=== PATIENT | male | born 1970 | race Caucasian/White ===

== ENCOUNTER 2017-07-17 17:57 | Emergency (ER) | payer SELFPAY ==
[2017-07-17] MEDS ORDERED: Pantoprazole 40 MG Vial IVPUSH ONE (19:04)
[2017-07-17] MEDS ORDERED: Ondansetron 4 MG/2 ML SDV IVPUSH ONE (19:04)
--- NOTE | 2017-07-17 19:07 | EDM.PDOC ---
ED HPI GENERAL MEDICAL PROBLEM - General Chief Complaint: Gastrointestinal Problem Stated Complaint: VOMITING/STOMACH PAIN Time Seen by Provider: 07/17/17 19:05 Source of Information: Reports: Patient - History of Present Illness INITIAL COMMENTS - FREE TEXT/NARRATIVE: HISTORY AND PHYSICAL: History of present illness: [Patient presents with vomiting 2 and some abdominal discomfort no fever chills sweats no chest pain shortness breath headache dizziness palpitation no bowel or urine symptoms He rates discomfort/pain 2 out of 10 without focus and nonradiating ] He attributes vomiting treating ground beef this morning he states was well cooked Review of systems: As per history of present illness and below otherwise all systems reviewed and negative. Past medical history: As per history of present illness and as reviewed below otherwise noncontributory. Surgical history: As per history of present illness and as reviewed below otherwise noncontributory. Social history: No reported history of drug or alcohol abuse. Family history: As per history of present illness and as reviewed below otherwise noncontributory. Physical exam: HEENT: Atraumatic, normocephalic, pupils reactive, negative for conjunctival pallor or scleral icterus, mucous membranes moist, throat clear, neck supple, nontender, trachea midline. Lungs: Clear to auscultation, breath sounds equal bilaterally, chest nontender. Heart: S1S2, regular, negative for clicks, rubs, or JVD. Abdomen: Soft, nondistended, mild diffuse tenderness on deep palpation nonfocal. Negative for masses or hepatosplenomegaly. Negative for costovertebral tenderness. Pelvis: Stable nontender. Genitourinary: Deferred. Rectal: Deferred. Extremities: Atraumatic, negative for cords or calf pain. Neurovascular unremarkable. Neuro: Awake, alert, oriented. Cranial nerves II through XII unremarkable. Cerebellum unremarkable. Motor and sensory unremarkable throughout. Exam nonfocal. Diagnostics: [CBC CMP UA lipase troponin ]Flat and upright Therapeutics: [1 L normal saline bolus Zofran 8 mg IV Proton X 80 mg IV ] Impression: [Gastroenteritis] Vomiting Definitive disposition and diagnosis as appropriate pending reevaluation and review of above. Abdomen Pain Score (Numeric/FACES): 3 - Related Data Allergies Allergy/AdvReac Type Severity Reaction Status Date / Time No Known Allergies Allergy Verified 07/17/17 19:03 Home Meds: Home Meds . [No Known Home Meds] 07/17/17 [History] ED ROS GENERAL - Review of Systems Review Of Systems: ROS reveals no pertinent complaints other than HPI. ED EXAM, GENERAL - Physical Exam Exam: See Below Course - Vital Signs Last Recorded V/S: Last Vital Signs Temp 98.3 F 07/17/17 19:03 Pulse 62 07/17/17 19:03 Resp 18 07/17/17 19:03 BP 156/93 H 07/17/17 19:03 Pulse Ox 98 07/17/17 19:03 - Orders/Labs/Meds Orders: Active Orders 24 hr Category Date Time Status Abdomen 2V AP Flat Upright [CR] Stat Exams 07/17/17 19:54 Taken Sodium Chloride 0.9% [Normal Saline] 1,000 ml Med 07/17/17 19:15 Active IV STAT Medication Orders Sodium Chloride (Normal Saline) 1,000 mls @ 125 mls/hr IV STAT GAYE Last Admin: 07/17/17 19:20 Dose: 125 mls/hr Labs: Laboratory Tests 07/17/17 07/17/17 Range/Units 19:09 19:09 WBC 11.07 H (4.0-11.0) K/uL RBC 6.15 H (4.50-5.90) M/uL Hgb 17.0 (13.0-17.0) g/dL Hct 50.1 H (38.0-50.0) % MCV 81.5 (80.0-98.0) fL MCH 27.6 (27.0-32.0) pg MCHC 33.9 (31.0-37.0) g/dL RDW Std Deviation 40.9 (28.0-62.0) fl RDW Coeff of Karyn 14 (11.0-15.0) % Plt Count 265 (150-400) K/uL MPV 9.80 (7.40-12.00) fL Neut % (Auto) 66.9 (48.0-80.0) % Lymph % (Auto) 20.8 (16.0-40.0) % Martin % (Auto) 10.1 (0.0-15.0) % Eos % (Auto) 1.8 (0.0-7.0) % Baso % (Auto) 0.4 (0.0-1.5) % Neut # (Auto) 7.4 H (1.4-5.7) K/uL Lymph # (Auto) 2.3 (0.6-2.4) K/uL Martin # (Auto) 1.1 H (0.0-0.8) K/uL Eos # (Auto) 0.2 (0.0-0.7) K/uL Baso # (Auto) 0.0 (0.0-0.1) K/uL Nucleated RBC % 0.0 /100WBC Nucleated RBCs # 0 K/uL Sodium 139 (136-148) mmol/L Potassium 3.8 (3.5-5.1) mmol/L Chloride 104 (98-107) mmol/L Carbon Dioxide 30.4 (21.0-32.0) mmol/L BUN 8 (7.0-18.0) mg/dL Creatinine 1.0 (0.8-1.3) mg/dL Est Cr Clr Drug Dosing 93.28 mL/min Estimated GFR (MDRD) > 60.0 ml/min Glucose 109 H (74-106) mg/dL Calcium 9.2 (8.5-10.1) mg/dL Total Bilirubin 0.6 (0.2-1.0) mg/dL AST 56 H (15-37) U/L ALT 97 H (14-63) U/L Alkaline Phosphatase 91 (46-116) U/L Troponin I < 0.050 (0.000-0.056) ng/mL Total Protein 8.5 H (6.4-8.2) g/dL Albumin 4.0 (3.4-5.0) g/dL Globulin 4.5 H (2.0-3.5) g/dL Albumin/Globulin Ratio 0.9 L (1.3-2.8) Lipase 88 (73-393) U/L Meds: Medications Generic Name Dose Route Start Last Admin Trade Name Freq PRN Reason Stop Dose Admin Sodium Chloride 1,000 mls @ 125 mls/hr 07/17/17 19:15 07/17/17 19:20 Normal Saline IV 125 mls/hr STAT GAYE Administration Discontinued Medications Generic Name Dose Route Start Last Admin Trade Name Freq PRN Reason Stop Dose Admin Ondansetron HCl 8 mg 07/17/17 19:04 07/17/17 19:20 Zofran IVPUSH 07/17/17 19:05 8 mg ONETIME ONE Administration Pantoprazole Sodium 80 mg 07/17/17 19:04 07/17/17 19:21 Protonix Iv IVPUSH 07/17/17 19:05 80 mg .BOLUS ONE Administration Departure - Departure Time of Disposition: 21:02 Disposition: Home, Self-Care 01 Condition: Good Clinical Impression: Gastroenteritis - Discharge Information Referrals: PCP,None [Primary Care Provider] - Forms: ED Department Discharge Additional Instructions: Medication as prescribed Gas-X may benefit 4 times daily available [id number] Rest fluids nutrition Recommend clear liquid diet over the next 12-24 hours water and Gatorade Follow-up with primary care in 2 weeks sooner as needed Return if symptoms persist or worsen or new concerning symptoms develop [facility] - Primary Care [address] [place] [address] The following information is given to patients seen in the emergency department who are being discharged to home. This information is to outline your options for follow-up care. We provide all patients seen in our emergency department with a follow-up referral. The need for follow-up, as well as the timing and circumstances, are variable depending upon the specifics of your emergency department visit. If you don't have a primary care physician on staff, we will provide you with a referral. We always advise you to contact your personal physician following an emergency department visit to inform them of the circumstance of the visit and for follow-up with them and/or the need for any referrals to a consulting specialist. The emergency department will also refer you to a specialist when appropriate. This referral assures that you have the opportunity for follow-up care with a specialist. All of these measure are taken in an effort to provide you with optimal care, which includes your follow-up. Under all circumstances we always encourage you to contact your private physician who remains a resource for coordinating your care. When calling for follow-up care, please make the office aware that this follow-up is from your recent emergency room visit. If for any reason you are refused follow-up, please contact the [facility] emergency department at and asked to speak to the emergency department charge nurse. - My Orders Last 24 Hours: My Active Orders 07/17/17 19:15 Sodium Chloride 0.9% [Normal Saline] 1,000 ml IV STAT 07/17/17 19:54 Abdomen 2V AP Flat Upright [CR] Stat - Assessment/Plan Last 24 Hours: My Active Orders 07/17/17 19:15 Sodium Chloride 0.9% [Normal Saline] 1,000 ml IV STAT 07/17/17 19:54 Abdomen 2V AP Flat Upright [CR] Stat
[2017-07-17] MEDS ORDERED: Sodium Chloride 0.9% 1,000 ML IV SCH (19:15)
[2017-07-17 19:42] LABS: CHLORIDE,CL 104 mmol/L (98-107); SODIUM,NA 139 mmol/L (136-148)
--- NOTE | 2017-07-18 08:21 | CR ---
EXAM DATE: 07/17/17 PATIENT'S AGE: 47 Patient: JACKSON STEPHEN Facility: [place], [place] Site . Site : [id number] Study: XRay Abdomen [id number] 8:54:44 PM Ordering Physician: Karolina Mckenzie Final Report: INDICATION: Abdominal Pain, ate bad beef TECHNIQUE: Abdominal radiograph 2 views COMPARISON: None FINDINGS: Moderate degradation of image quality noted due to body habitus. Bowel: The bowel gas pattern is normal without evidence of bowel obstruction. Soft tissue: No evidence of pneumoperitoneum present. No suspicious calcifications noted. Two phleboliths are noted in the right pelvis. Bones: Unremarkable for age. IMPRESSION: 1. Unremarkable appearance of the visualized abdomen. Dictated by: Jaspal Salinas MD @ 07/17/2017 20:58:29 (Electronic Signature) Report Signed by Proxy. THEE
== END 2017-07-17 21:21 | disposition home or self-care (01) ==
LOC: MW.ED 17:57
DX: K52.9 Noninfective gastroenteritis and colitis, unspecified (principal)
CPT/HCPCS: 36415; 74019; 80053; 83690; 84484; 85025; 96361; 96374; 96375; 99284; C9113; J2405; J7040; 99283